=== PATIENT | male | born 1980 | race African-American/Black ===

== ENCOUNTER 2020-06-09 18:02 | Emergency (ER) | payer SELFPAY ==
[~2020-06-09] VITALS: Ht 180.3 cm; Wt 170.4 kg
[2020-06-09] MEDS ORDERED: COLCHICINE 0.6 MG TABLET PO ONE (20:00)
[2020-06-09] MEDS ORDERED: KETOROLAC TROMETHAMINE 30 MG/ML VIAL IM ONE (20:00)
[2020-06-09 20:47] VITALS: BP 142/89
== END 2020-06-09 20:54 | disposition home or self-care (01) ==
LOC: EMS 18:04
DX: M10.9 Gout, unspecified (principal)
CPT/HCPCS: 96372; 99283; J1885

== ENCOUNTER 2023-06-26 11:18 | Emergency (ER) | payer BC ==
[~2023-06-26] VITALS: Ht 177.8 cm; Wt 163.6 kg
[2023-06-26 11:20] VITALS: TEMP 98.7
[2023-06-26] MEDS ORDERED: IBUPROFEN 600 MG TABLET PO ONE (11:45)
[2023-06-26] MEDS ORDERED: CYCLOBENZAPRINE HCL 10 MG TABLET PO ONE (11:45)
[2023-06-26 11:51] LABS: BASOPHILS % (AUTO) 0.5 % (0.0-2.0); EOSINOPHILS % (AUTO) 4.6 % (1.0-6.0); HEMOGLOBIN 12.6 g/dL (13.5-17.5); LYMPHOCYTES # (AUTO) 2.6 K/uL (1.0-4.8); LYMPHOCYTES % (AUTO) 28.6 % (22.0-44.0); MEAN CORPUSCULAR HEMOGLOBIN 31.2 pg (26.0-34.0); MEAN CORPUSCULAR HGB CONC 33.1 G/dL (31.0-37.0); MEAN CORPUSCULAR VOLUME 94 fL (80-100); MONOCYTES % (AUTO) 10.9 % (2.0-9.0); NEUTROPHILS % (AUTO) 55.4 % (40.0-70.0); PLATELET COUNT (AUTO) 327 K/uL (150-450); RED BLOOD CELL COUNT(AUTO) 4.03 MIL/uL (4.50-5.90); RED CELL DISTRIBUTION WIDTH 12.5 % (11.5-14.5); WHITE BLOOD COUNT (AUTO) 9.1 K/uL (4.5-11.0)
[2023-06-26 12:08] LABS: ANION GAP 11 mmol/L (8-16); CALCIUM, TOTAL 8.5 mg/dL (8.8-10.5); CARBON DIOXIDE 26 mmol/L (22-29); CHLORIDE 104 mmol/L (98-107); GLOMERULAR FILTR. RATE CALC > 60 mL/min (>60); GLUCOSE,RANDOM 95 mg/dL (70-110); POTASSIUM 3.7 mmol/L (3.5-5.1); SODIUM SERUM 141 mmol/L (136-145); TROPONIN I-HIGH SENSITIVITY 6 ng/L (<76); UREA NITROGEN, BLOOD 14 mg/dL (7-18)
[2023-06-26] MEDS ORDERED: CYCL-448 PO (12:13)
[2023-06-26] MEDS ORDERED: IBUP-1492 PO (12:13)
[2023-06-26 12:25] VITALS: BP 136/75; PULSE 60; RESP 18
== END 2023-06-26 12:35 | disposition home or self-care (01) ==
LOC: EMS 11:39
DX: R07.89 Other chest pain (principal); R03.0 Elevated blood-pressure reading, without diagnosis of hypertension; Z90.49 Acquired absence of other specified parts of digestive tract
CPT/HCPCS: 71045; 80048; 84484; 85025; 93005; 99285; 36415-L1; 36415-TC